=== PATIENT | female | born 1970 | race African-American/Black ===

== ENCOUNTER → 2023-07-25 08:24 | Outpatient (REF) | payer BC, SELFPAY | LOC: PAVMRI 08:24 | PROVIDERS: ATTENDING PHYSICIAN Advanced Practice Midwife | DX: D25.9 Leiomyoma of uterus, unspecified (principal); N93.9 Abnormal uterine and vaginal bleeding, unspecified | CPT/HCPCS: 72197; A9575 ==

== ENCOUNTER 2024-01-24 06:09 | Day surgery (SDC) | payer BC, SELFPAY ==
[2024-01-19 08:33] VITALS: BMI 41.3
[2024-01-19 08:56] LABS: % Basophils 0.5 % (0-2); % Eosinophils 3.6 % (0-6); % Immature Granulocytes 0.5 % (0-0.5); % Lymphocytes 29.7 % (20.5-51.1); % Monocytes 7.2 % (1.7-9.3); % Neutrophils 58.5 % (42.2-75.2); Absolute Eosinophils 0.2 10^3/uL (0-0.7); Absolute Lymphocytes 1.8 10^3/uL (1.2-3.4); Absolute Monocytes 0.4 10^3/uL (0.1-0.6); Absolute Neutrophils 3.6 10^3/uL (1.4-6.5); Hematocrit 31.8 % (37.0-47.0); Hemoglobin 10.1 g/dL (12.0-16.0); Mean Corp Hgb Conc. 31.8 g/dL (33.0-37.0); Mean Corpuscular Hgb 23.9 pg (27.0-31.0); Mean Corpuscular Volume 75.2 fL (81.0-99.0); Mean Platelet Volume 10.6 fL (7.4-10.4); Nucleated Red Blood Cells % 0 %; Platelet Count 347 10^3/uL (130-400); Red Blood Cell Count 4.23 10^6/uL (4.20-5.40); Red Cell Dist. Width 14.4 % (11.5-14.5); White Blood Cell Count 6.1 10^3/uL (4.8-10.8)
[2024-01-19 09:28] LABS: Beta HCG Quantitative < 2.39 mIU/ml
[2024-01-19 09:35] LABS: Blood Urea Nitrogen 11 mg/dl (7-17); Calcium 9.9 mg/dl (8.4-10.2); Carbon Dioxide 26 mmol/L (22-30); Chloride 102 mmol/L (98-107); Estimated Creatinine Clearance 91 ml/min; Glucose 124 mg/dl (70-99); Potassium 4.3 mmol/L (3.5-5.1); Sodium 142 mmol/L (135-145); eGFR > 60.00
[2024-01-24] VITALS (9 sets, daily range): BP systolic 102–144; BP diastolic 57–83; BMI 41.3
[2024-01-24] MEDS: NEURONTIN 300 MG PO (09:39)
[2024-01-24] MEDS: TYLENOL 1000 MG PO (09:40)
--- NOTE | 2024-01-24 11:44 | W.IMMPOSTOP ---
Surgical Immed Post Op Note
-
Primary Surgeon: Rosy Arteaga DO
Assisting Surgeon: none
Pre-op Diagnosis: menorrhagia, enlarged fibroid uterus
Post-op Diagnosis: same large cystocele
Procedure Performed: Hysteroscopy D&C
Anesthesia Type: general Dr. Blas
Specimen / Cultures: 1. endocervical curettings 2. endometrial curettings
Estimated Blood Loss: less than 5 ml
Fluid deficit: 20ml NSS
Complications: none
Operative Findings: Enlarged uterus approx 18 wk size, sounded to approx 16-17 cm. Submucosal fibroid slightly indenting superficially into endometrial cavity. Bilateral tubal ostia seen.
Counts correct times 2.
Stable to recovery,
== END 2024-01-24 13:15 | disposition home or self-care (01) ==
LOC: SDS 06:09
PROVIDERS: ATTENDING PHYSICIAN Obstetrics & Gynecology; FAMILY PHYSICIAN Nurse Practitioner Family
DX: N85.8 Other specified noninflammatory disorders of uterus (principal); N85.02 Endometrial intraepithelial neoplasia [EIN]; N92.0 Excessive and frequent menstruation with regular cycle
CPT/HCPCS: 58558; 88305; 80048; 84702; 85025; 86850; 86900; 86901

== ENCOUNTER 2024-05-01 06:12 | Day surgery (SDC) | payer BC, SELFPAY ==
[2024-04-27 08:43] LABS: % Basophils 0.3 % (0-2); % Eosinophils 3.5 % (0-6); % Immature Granulocytes 0.3 % (0-0.5); % Lymphocytes 32.1 % (20.5-51.1); % Monocytes 8.3 % (1.7-9.3); % Neutrophils 55.5 % (42.2-75.2); Absolute Eosinophils 0.2 10^3/uL (0-0.7); Absolute Lymphocytes 1.9 10^3/uL (1.2-3.4); Absolute Monocytes 0.5 10^3/uL (0.1-0.6); Absolute Neutrophils 3.4 10^3/uL (1.4-6.5); Hematocrit 34.5 % (37.0-47.0); Hemoglobin 10.8 g/dL (12.0-16.0); Mean Corp Hgb Conc. 31.3 g/dL (33.0-37.0); Mean Corpuscular Hgb 22.8 pg (27.0-31.0); Mean Corpuscular Volume 72.8 fL (81.0-99.0); Mean Platelet Volume 10.7 fL (7.4-10.4); Nucleated Red Blood Cells % 0 %; Platelet Count 339 10^3/uL (130-400); Red Blood Cell Count 4.74 10^6/uL (4.20-5.40); Red Cell Dist. Width 16.2 % (11.5-14.5); White Blood Cell Count 6.1 10^3/uL (4.8-10.8)
[2024-04-27 08:51] LABS: INR 0.96
[2024-04-27 08:52] LABS: APTT 26.2 Sec (23.4-35.0)
[2024-04-27 09:20] LABS: Blood Urea Nitrogen 15 mg/dl (7-17); Calcium 9.8 mg/dl (8.4-10.2); Carbon Dioxide 26 mmol/L (22-30); Chloride 100 mmol/L (98-107); Glucose 131 mg/dl (70-99); Potassium 4.5 mmol/L (3.5-5.1); Sodium 139 mmol/L (135-145); eGFR > 60.00
[2024-04-27 09:28] LABS: Beta HCG Quantitative < 2.39 mIU/ml
[2024-04-27 14:08] VITALS: BMI 39.5
[2024-05-01] VITALS (14 sets, daily range): BP systolic 118–131; BP diastolic 65–77; BMI 39.4
--- NOTE | 2024-05-01 06:42 | W.SUR.PREOP ---
Pre-Operative Surgical Note
-
I have examined this patient prior to the performance of the scheduled procedure.
The patient's condition is unchanged from the time of the current History and
Physical and the patient is able to undergo the scheduled procedure.
[2024-05-01] MEDS: NEURONTIN 300 MG PO (06:43)
[2024-05-01] MEDS: TYLENOL 1000 MG PO (06:43)
[2024-05-01] MEDS: HEPARIN 5000 UNITS SC (06:45)
[2024-05-01] MEDS: NORMOSOL-R/PLASMALYTE-A 1000 IV (06:58)
--- NOTE | 2024-05-01 10:34 | W.IMMPOSTOP ---
Surgical Immed Post Op Note
-
Primary Surgeon: Rosy Arteaga DO
Machinist: COLLIN Delacruz
Pre-op Diagnosis: Enlarged fibroid uterus, menorrhagia
Post-op Diagnosis: same
Procedure Performed: RA TLH b/l excision of remaining portions bilateral tubes (prior partial salpingectomy), minilaparotomy for specimen extraction.
Anesthesia Type: general ET. Dr. Cao
Specimen / Cultures: uterus, cervix and portion of fallopian tubes (remaining tubes from prior partial salpingectomy)
Estimated Blood Loss: 15ml
Urine output: 500ml
Complications: none
Operative Findings: Enlarged uterus approx 18cm size with multiple large fibroids, normal appearing tubes and ovaries. Only a portion of tubes remain from prior partial salpingectomy.
Small superficial abrasion on right upper vaginal wall (likely from retraction and attempt at delivering specimen vaginally)- repaired with interrupted stitch of 3-0 vicryl.
Counts correct times 2
Stable to recovery.
== END 2024-05-01 14:56 | disposition home or self-care (01) ==
LOC: SDS 06:12
PROVIDERS: ATTENDING PHYSICIAN Obstetrics & Gynecology; FAMILY PHYSICIAN Nurse Practitioner Family
DX: D25.9 Leiomyoma of uterus, unspecified (principal); N80.03 Adenomyosis of the uterus; S30.814A Abrasion of vagina and vulva, initial encounter; Y83.8 Other surgical procedures as the cause of abnormal reaction of the patient, or of later complication, without mention of misadventure at the time of the procedure; N92.0 Excessive and frequent menstruation with regular cycle; D50.0 Iron deficiency anemia secondary to blood loss (chronic); E66.813 Obesity, class 3; Z68.41 Body mass index [BMI] 40.0-44.9, adult; Z80.3 Family history of malignant neoplasm of breast
CPT/HCPCS: 58571; 88307; 36415; 80048; 84702; 85025; 85610; 85730; 86850; 86900; 86901; 88341; 88342; 93005